=== PATIENT | male | born 1940 | race Caucasian/White ===

== ENCOUNTER → 2021-06-01 | Outpatient (CLI) | payer MEDICARE ==
--- NOTE | 2021-06-01 10:55 | KCIC ---
Examination: MRI lumbar spine without IV contrast. History: Chronic back pain, newer sciatic pain in bilateral lower extremities, previous surgery. Technique: Multiplanar, multi sequential MR imaging was performed of the lumbar spine. Comparison: None Findings: The vertebral bodies are normal in height and alignment. No acute fracture or subluxation.Conus termi nates at the normal location. No evidence of nerve root clumping. Multilevel degenerative changes wit h disc desiccation and disc space narrowing. Specific level as follow: T12-L1: Mild diffuse disc bulge with mild bilateral facet arthropathy. No significant canal stenosis or neuroforaminal narrowing. L1-L2: Diffuse disc bulge with small right paracentral disc protrusion indenting anterior thecal sac. Mild bilateral facet arthropathy. No significant canal stenosis. Mild left neuroforaminal narrowing. L2-L3: Left asymmetric disc bulge with bilateral facet arthropathy. No significant canal stenosis. Mi ld to moderate left and mild right neuroforaminal narrowing. L3-L4: Diffuse disc bulge with small right paracentral disc extrusion and minimal inferior migration. Mild bilateral facet arthropathy. No significant canal stenosis. Moderate left and mild right neurof oraminal narrowing. L4-L5: Diffuse disc bulge with right paracentral disc extrusion with superior migration. No significa nt canal stenosis. Moderate right and mild left neuroforaminal narrowing. L5-S1: Diffuse disc bulge with bilateral facet arthropathy. No significant canal stenosis. Moderate t o severe bilateral neuroforaminal narrowing, abutting bilateral L5 nerve roots. Impression: 1. Multilevel degenerative changes as described above, worst at L5-S1 with moderate to severe bilate ral neuroforaminal narrowing abutting bilateral L5 nerve roots. 2. No significant canal stenosis. Electronically signed by: Marcelino Lacy MD (06/01/2021 10:52 AM) [id number]
== END ==
LOC: KCIC MRI 09:42
PROVIDERS: ATTEND Family Medicine
DX: M47.817 Spondylosis without myelopathy or radiculopathy, lumbosacral region (principal); M51.27 Other intervertebral disc displacement, lumbosacral region; M48.8X7 Other specified spondylopathies, lumbosacral region; M99.63 Osseous and subluxation stenosis of intervertebral foramina of lumbar region
CPT/HCPCS: 72148